=== PATIENT | male | born 2000 | race African-American/Black ===

== ENCOUNTER 2020-03-25 19:18 | Emergency (ER) | payer MEDICAID, SELFPAY ==
[2020-03-25] VITALS (7 sets, daily range): BP systolic 104–120; BP diastolic 64–66; PULSE 111–115; RESP 16–29; TEMP 35.8–37; O2SAT 94–96; BMI 20.3
--- NOTE | 2020-03-25 19:48 | EKG12_ITS ---
Test Reason : CP Blood Pressure : / mmHG Vent. Rate : 103 BPM Atrial Rate : 103 BPM P-R Int : 160 ms QRS Dur : 086 ms QT Int : 308 ms P-R-T Axes : 075 028 078 degrees QTc Int : 403 ms Sinus tachycardia Right atrial enlargement Anteroseptal infarct , age undetermined Abnormal ECG Confirmed by SCOT GALLEGO, DESTINI ([id number]), assignment desk editor ROSALIE HEALY ([id number]) on 03/28/2020 4:11:37 PM Referred By: LESVIA Confirmed By:DESTINI ELLISON MD
--- NOTE | 2020-03-25 20:08 | ED.VIS.GEN ---
History of Present Illness Chief Complaint: Cold Sx Informant: Patient Narrative: Patient is a 19-year-old male with a past medical history of asthma who presents to the emergency department for cough, chest pain and back pain. The symptoms initially started 3 days ago. He states his cough has been productive of a phlegm. To have one episode of vomiting but it was all phlegm. Denies any abdominal pain or diarrhea. No shortness of breath. He states that he gets the symptoms whenever the weather changes and it affects his asthma. He has been using home breathing treatments which have not given him significant relief. The chest pain is reproducible with palpation. He has not tried anything for this. He does not know of any sick contacts or COVID exposures. He has not had any fevers or chills. He denies any leg swelling or calf pain. No history of DVT/PE. Patient does smoke cigarettes. Past Medical History - Allergies and Home Meds Allergies/Adverse Reactions: Allergies azithromycin [From Zithromax [id number]-Sukhdeep] Allergy (Verified 03/25/20 19:21) Hives shellfish derived Allergy (Verified 03/25/20 19:21) Hives Primary Care Physician: Gilda Milton MD [Primary Care Provider] - 2 Days Prior records reviewed: Yes Past Medical History: - - Asthma Smoking Status: Current some day smoker Review of Systems All systems negative except as indicated General: Denies: Chills, Fever, Sweats Eyes: Denies: Visual changes - bilaterally, Diplopia ENT: Denies: Rhinorrhea, Sore throat Cardiovascular: Reports: Chest pain. Denies: Palpitations Respiratory: Reports: Cough. Denies: Dyspnea, Dyspnea on exertion Gastrointestinal: Reports: Vomiting. Denies: Abdominal pain, Nausea, Diarrhea Genitourinary: Denies: Dysuria, Hematuria, Frequency Musculoskeletal: Reports: Back pain. Denies: Extremity Pain Skin: Denies: Rash, Wounds Neurological: Denies: Headache, Weakness, Numbness Physical Exam Vital Signs/Narrative: Vital Signs Temp Pulse Resp BP Pulse Ox 03/25/20 19:32 96.5 F L 115 H 16 117/64 96 03/25/20 19:19 96.5 F L 115 H 16 117/64 96 Inital Vital Signs reviewed: Yes General: Well nourished, Well developed, No Acute Distress Head: Normocephalic, Atraumatic Eyes: Perrl, EOMI ENT: Moist mucous membranes, No rhinorrhea Neck: Supple, Nontender Cardiovascular: Regular rate, Regular rhythm, No murmurs, Tachycardia Respiratory: No distress, Wheezing, Chest tenderness Abdomen: Soft, Nontender, Nondistended, Normal bowel sounds Back: Nontender, Normal Inspection Extremities: Nontender. Negative for: Edema, Calf Tenderness Skin: Normal color, No rash Neurological: Alert, Oriented x3, Cranial nerves II-XII grossly intact, Normal Strength, Normal Sensation Psychological: Normal affect, Normal Mood Diagnostic/Tx/Re-eval - EKG Initial EKG Interpretation: - - Rate of 103 bpm in sinus tachycardia. Normal intervals. Normal axis. No ST elevations or depressions appreciated. No T wave antibodies. No prior EKG for comparison. - Medical Decision Making Patient presents to the ED for cough and chest pain. He denies associated shortness of breath. Upon arrival to the emerge department satting well on room air. He is mildly tachycardic. He does have significant wheezing on physical exam. He is afebrile. Basic lab work along with EKG and chest x-ray being obtained. Coronavirus swab performed. Patient given a breathing treatment for symptomatic relief. After breathing treatment patient states he is feeling completely better. He wants to be discharged. He states that he was only concerned about the coronavirus. This test is currently pending. He understands he is to self quarantine until this results. He does have albuterol solution at home and can continue to use this as needed. Lab work-up did not reveal a significant acute abnormality except for very mildly elevated white blood cell count. Troponin is negative. Low concern for PE given the fact that symptoms resolved with the breathing treatment, wheezing. He needs to follow-up with his PCP. Warning signs and symptoms for which to return to the ED are reviewed with him. He understands and is agreeable this plan. ED Disposition - Plan for ED Patient: Disposition: Home or Assisted Living Diagnosis: Cough, Chest wall pain, Asthma exacerbation Instructions: ED Chest Pain NonCardiac, ED Bronchitis Asthmatic Referrals: Gilda Milton MD [Primary Care Provider] - 2 Days
--- NOTE | 2020-03-25 20:16 | RAD_ITS ---
STUDY: X-RAY CHEST REASON FOR EXAM: Male, 19 years old. COUGH, SOB, CHEST PAIN xCOUPLE DAYS -- HX OF ASTHMA TECHNIQUE: Single frontal view of the chest. COMPARISON: None. FINDINGS: The lungs are clear and expanded. There is no demonstrated pleural abnormality. Normal size heart. Normal mediastinum and nikki. Normal visualized pulmonary arteries. Normal visualized aortic arch and descending thoracic aorta. Normal visualized thoracic spine. Normal visualized ribs, clavicles, and shoulders. There is no demonstrated abnormality of the visualized soft tissue structures of the upper abdomen. RAD/Chest 1 View (Portable) IMPRESSION: Normal x-ray examination of the chest. Electronically Signed: Harsha Lockhart MD at 21:10 EDT Tel , Service support ,
[2020-03-25] MEDS: Ipratropium/Albuterol Sulfate 3 ML AMPUL.NEB INHALATION (20:23)
[2020-03-25 20:45] LABS: Absolute Lymphocyte Count 0.89 X10^3/uL (0.83-4.51); Absolute Neutrophil Count 10.6 X10^3/uL (2.0-7.7); Basophil# 0.02 X10^3/uL; Basophil% 0.1 % (0-1); Eosinophil# 0.23 X10^3/uL; Eosinophils% 1.7 % (0-5); Hematocrit 46.1 % (40-54); Hemoglobin 15.8 g/dL (13.0-16.5); Lymphocyte # 0.89 X10^3/ul (4.0); Lymphocyte % 6.6 % (19-41); Mean Corp Hgb Conc 34.3 g/dL (32-36); Mean Corpuscular Hgb 30.7 pg (27.0-32.0); Mean Corpuscular Volume 89.5 fL (80-94); Mean Platelet Vol. 10.2 fl (6.2-12.0); Monocyte# 1.73 X10^3/uL; Monocyte% 12.8 % (0-10); NRBC Flagged by Analyzer 0 % (0-5); Neutrophil # 10.55 X10^3/uL (2.7-7.7); Neutrophil % 78.4 % (47-70); POSITIVE DIFFERENTIAL YES; Platelet Count 192 K/mm3 (150-450); RBC Distribution Width CV 11.5 % (11.6-14.6); RBC Distribution Width SD 37.9 fl (35.1-43.9); Red Blood Count 5.15 M/mm3 (4.6-6.2); White Blood Count 13.5 K/mm3 (4.4-11.0)
[2020-03-25 20:48] LABS: Differential Indicated SCAN CRITERIA MET
[2020-03-25 21:15] LABS: Anion Gap 8 (5-15); BUN 6 mg/dL (7-18); BUN/Creat Ratio 7.9 RATIO (10-20); Calcium,Total 9.8 mg/dL (8.5-10.1); Chloride 108 mmol/L (98-107); Creatinine, Serum 0.76 mg/dL (0.70-1.30); EST Glomerular Filtration Rate 138 mL/min (>60); Est Glom Filt Rate - Afr Amer 167 mL/min (>60); Estimated Creatinine Clearance 143.97 ml/min; Glucose 90 mg/dL (74-106); Potassium 3.5 mmol/L (3.5-5.1); Sodium Level 142 mmol/L (136-145)
[2020-03-25 21:16] LABS: Differential Comment SCANNED
[2020-03-25 21:54] LABS: Probe Check PASS; Specimen Processing Control PASS
[2020-03-27 13:43] LABS: Pathologist Review Reviewed
== END 2020-03-25 22:28 | disposition home or self-care (01) ==
PROVIDERS: Emergency Provider Emergency Medicine; PCP Pediatrics
DX: J45.901 Unspecified asthma with (acute) exacerbation (principal); M54.9 Dorsalgia, unspecified; R11.10 Vomiting, unspecified; R00.0 Tachycardia, unspecified; F17.210 Nicotine dependence, cigarettes, uncomplicated
CPT/HCPCS: 71045; 80048; 84484; 85025; 87635; 93005; 94640; 99283; C9803; U0003